=== PATIENT | female | born 1990 | race Caucasian/White ===

== ENCOUNTER 2017-01-22 21:27 | Emergency (ER) | payer MEDICAID ==
[~2017-01-22] VITALS: Ht 157.5 cm; Wt 71.0 kg
[2017-01-22] MEDS ORDERED: LORAZEPAM 1MG TABLET PO ONE (22:30)
[2017-01-22 23:29] VITALS: BP 123/76
== END 2017-01-23 00:44 | disposition home or self-care (01) ==
LOC: ER 22:33
DX: F41.0 Panic disorder [episodic paroxysmal anxiety] (principal); J45.909 Unspecified asthma, uncomplicated
CPT/HCPCS: 99284

== ENCOUNTER 2017-05-15 22:19 | Emergency (ER) | payer SELFPAY ==
[~2017-05-15] VITALS: Ht 160 cm; Wt 70.0 kg
[2017-05-15 22:34] VITALS: BP 122/84
== END 2017-05-16 02:44 | disposition home or self-care (01) ==
LOC: ER 22:37
DX: R09.89 Other specified symptoms and signs involving the circulatory and respiratory systems (principal); F41.9 Anxiety disorder, unspecified; J45.909 Unspecified asthma, uncomplicated
CPT/HCPCS: 70490; 81025; 99284

== ENCOUNTER 2023-12-07 23:48 | Emergency (ER) | payer SELFPAY ==
[~2023-12-07] VITALS: Ht 160 cm; Wt 99.0 kg
[2023-12-08] VITALS: BP 126/74; PULSE 72; RESP 14; TEMP 98.2
[2023-12-08] MEDS ORDERED: BACITRACIN 14GM TUBE TOP ONE (00:30)
[2023-12-08] MEDS ORDERED: BO1 TP (01:41)
[2023-12-08] MEDS ORDERED: AMOX1TAB16 MT (01:42)
[2023-12-08] MEDS: TETANUS, DIPHTHERIA, PERTUSSIS VAC/PF 0.5ML (>10YR OLD) IM ONE (01:43)
== END 2023-12-08 01:57 | disposition home or self-care (01) ==
LOC: ER 23:48
DX: S61.214A Laceration without foreign body of right ring finger without damage to nail, initial encounter (principal); F41.9 Anxiety disorder, unspecified; J45.909 Unspecified asthma, uncomplicated; F12.90 Cannabis use, unspecified, uncomplicated; W55.03XA Scratched by cat, initial encounter; Y93.89 Activity, other specified; Y92.89 Other specified places as the place of occurrence of the external cause; Y99.8 Other external cause status
CPT/HCPCS: 99283; 90715; 90471; Z7610